=== PATIENT | male | born 1960 | race Two or more races ===

== ENCOUNTER → 2024-06-07 | Outpatient (CLI) | payer OTHER, SELFPAY ==
[2024-06-07 12:42] LABS: Amphetamine/Methamp Scrn,U Negative (Negative); Barbiturate Screen,Urine Negative (Negative); Benzodiazepines Screen,Urine Positive (Negative); Benzoylecgonine Screen, Ur Negative (Negative); Fentanyl Screen,Urine Negative (Negative); Opiate Screen,Urine Negative (Negative); THC Screen,Urine Positive (Negative)
== END | disposition home or self-care (01) ==
LOC: COPL 09:28 → SLDO 09:37
PROVIDERS: PCP Family Medicine; Referring Provider Family Medicine; Visit Provider Family Medicine
DX: M54.2 Cervicalgia (principal); Z71.51 Drug abuse counseling and surveillance of drug abuser
CPT/HCPCS: 80307

== ENCOUNTER → 2024-11-12 | Outpatient (CLI) | payer OTHER, SELFPAY ==
--- NOTE | 2024-11-12 10:00 | XR_ITS ---
Examination: Abdominal aortic ultrasound TECHNIQUE: Grayscale sonographic images abdominal aorta Date and time: November 13, 2019 5:10 AM INDICATIONS: Diagnosis encounter for screening cardiovascular disorder is, smoking history several years TECHNIQUE AND FINDINGS: Grayscale sonographic images abdominal aorta Transverse dimension proximal aorta 1.8 x 2.0 cm mid aorta 1.5 x 1.5 cm distal aorta 1.4 x 1.2 cm right iliac 0.9 cm left iliac 0.9 cm IMPRESSION: Negative for abdominal aortic aneurysm
--- NOTE | 2024-11-12 10:30 | XR_ITS ---
Examination: CT chest, without intravenous contrast. Sagittal and coronal 2-D reconstructions. Exam date and time: November 12 thousand 25, 1002 hours INDICATIONS: Lung cancer screening study, smoking history years CTDI:vol (mGy) 9.52 DLP: (mGycm) 366 Technique: Multiple 3.0 mm axial sections of the chest to been obtained. Bone and lung density settings are obtained. Sagittal and coronal 2-D reconstructions have been obtained. Low dose protocols were performed. One or more of the following dose reduction techniques were used; automated exposure control, adjustment of the mA and/or KV according to patient size, use of iterative reconstruction technique. Findings: No thoracic aortic aneurysm dilatation Pulmonary artery segments are not enlarged. Moderate calcification left anterior descending coronary artery. No paratracheal tracheobronchial or bronchopulmonary adenopathy. 4 mm pulmonary nodule right upper lobe image 87 6 mm pulmonary nodule right upper lobe image 190 No pneumonia or pulmonary edema No visualized liver or splenic lesion No gallstones No pancreatic mass No hydronephrosis Moderate thoracic degenerative disc disease IMPRESSION: Noncalcified pulmonary nodules as above, with this study as baseline recommend 6 month follow-up CT chest without contrast
== END | disposition home or self-care (01) ==
PROVIDERS: Referring Provider Student in an Organized Health Care Education/Training Program; Visit Provider Student in an Organized Health Care Education/Training Program
DX: Z13.6 Encounter for screening for cardiovascular disorders (principal); Z12.2 Encounter for screening for malignant neoplasm of respiratory organs; R91.8 Other nonspecific abnormal finding of lung field
CPT/HCPCS: 71250; 76706

== ENCOUNTER → 2024-11-29 | Outpatient (CLI) | payer OTHER, SELFPAY ==
[2024-11-29 12:13] LABS: Basophils # (Auto) 0.1 Thou/mm3 (0.0-0.2); Basophils % (Auto) 1 % (0-2.5); Eosinophils # (Auto) 0.1 Thou/mm3 (0.0-0.5); Eosinophils % (Auto) 1 % (0-10); Hematocrit 39.8 % (41.0-53.0); Hemoglobin 13.1 g/dL (13.5-16.0); Immature Granulocytes Auto 0.01 Thou/mm3 (0.00-0.00); Lymphocytes # (Auto) 1.8 Thou/mm3 (1.0-4.8); Lymphocytes % (Auto) 30 % (10-50); Mean Corpuscular HGB Conc 32.9 g/dl (31.0-37.0); Mean Corpuscular Hemoglobin 30.6 pg (25.0-35.0); Mean Corpuscular Volume 93 fL (80-100); Monocytes # (Auto) 0.3 Thou/mm3 (0.0-0.8); Monocytes % (Auto) 5 % (0-12); Neutrophils # (Auto) 3.7 Thou/mm3 (1.8-7.7); Neutrophils % (Auto) 62 % (37-80); Nucleated Red Blood Cell # 0.00 Thou/mm3 (0.00-0.00); Nucleated Red Blood Cell % 0 /100 WBC (0); Platelet Count 234 Thou/mm3 (140-440); RDW Standard Deviation 47.8 fL (35.1-43.9); Red Blood Count 4.28 Miln/mm3 (4.50-5.90); White Blood Count 5.8 Thou/mm3 (3.8-10.6)
[2024-11-29 12:16] LABS: Glucose Estimated Average 123 mg/dL (80-131); Hemoglobin A1C 5.9 % Hgb (4.8-6.0)
[2024-11-29 12:38] LABS: Alanine Aminotransferase 9 U/L (10-49); Albumin, Serum 3.9 gm/dL (3.4-4.8); Albumin/Globulin Ratio 1.5 (1.2-2.2); Alkaline Phosphatase 96 U/L (46-116); Anion Gap 6 (7-16); Aspartate Amino Transferase 16 U/L (0-34); BUN/Creatinine Ratio 9 Ratio (12-20); Bilirubin,Total 0.3 mg/dL (0.3-1.2); Blood Urea Nitrogen 10 mg/dL (9-23); Calcium 9.0 mg/dL (8.3-10.6); Calcium (Corrected) 9.1 mg/dL (8.5-10.1); Carbon Dioxide 29.7 mMol/L (20.0-31.0); Cardiac Risk Estimate 4.8 RATIO (4.0-6.7); Chloride 104 mMol/L (98-107); Cholesterol 213 mg/dL (132-200); Creatinine (Component) 1.1 mg/dL (0.6-1.3); Globulin 2.6 gm/dL (2.3-3.5); Glucose 98 mg/dL (74-106); HDL Cholesterol 44 mg/dL (40-60); LDL Cholesterol,Calculated 149 mg/dL (0-130); Osmolality,Calculated 278 (275-295); Potassium 5.0 mMol/L (3.4-5.1); Sodium 140 mMol/L (136-145); Total Protein 6.5 gm/dL (5.7-8.2); Triglycerides 99 mg/dL (30-150); eGFR > 60 See Note
[2024-12-01 22:07] LABS: PSA, Free 0.19 ng/mL; PSA, Total 0.4 ng/mL (< OR = 4.0)
== END | disposition home or self-care (01) ==
LOC: COPL 11:08
PROVIDERS: PCP Student in an Organized Health Care Education/Training Program; Referring Provider Student in an Organized Health Care Education/Training Program; Visit Provider Student in an Organized Health Care Education/Training Program
DX: F34.1 Dysthymic disorder (principal); F41.9 Anxiety disorder, unspecified; J44.9 Chronic obstructive pulmonary disease, unspecified; Z12.5 Encounter for screening for malignant neoplasm of prostate
CPT/HCPCS: 36415; 80053; 80061; 83036; 84153; 84154; 85025

== ENCOUNTER → 2024-12-03 | Outpatient (CLI) | payer OTHER, SELFPAY ==
[2024-12-03 14:02] LABS: OBS Card Expiration Date 2028/02/28; OBS Card Lot # 10/24; OBS Performed By LAB; OBS QC OK? Yes
[2024-12-03 15:09] LABS: OBS Developer Expiration Date 2027-02-28; OBS Developer Lot # 551749; Occult Blood, Stool Negative (Negative); Occult Blood, Stool #2 Negative (Negative); Occult Blood, Stool #3 Negative (Negative)
== END | disposition home or self-care (01) ==
LOC: SLDO 13:59
PROVIDERS: Referring Provider Student in an Organized Health Care Education/Training Program; Visit Provider Student in an Organized Health Care Education/Training Program
DX: Z12.11 Encounter for screening for malignant neoplasm of colon (principal)
CPT/HCPCS: 82270